=== PATIENT | male | born 1970 | race Caucasian/White ===

== ENCOUNTER 2021-09-13 10:31 | Emergency (ER) | payer OTHER ==
[~2021-09-13] VITALS: Ht 182.9 cm; Wt 93.4 kg
--- NOTE | 2021-09-13 10:34 | NUR ---
DR CAMERON AT BEDSIDE
[2021-09-13 10:45] VITALS: BP 165/107
--- NOTE | 2021-09-13 11:03 | NUR ---
TURN SUPERVISOR AT BEDSIDE
--- NOTE | 2021-09-13 11:53 | NUR ---
CALLED [facility] FOR PT
--- NOTE | 2021-09-13 11:53 | NUR ---
[facility]
[2021-09-13 11:56] LABS: BASOPHILS % (AUTO) 0.3 % (0.0-2.0); HEMATOCRIT 43 % (39-51); HEMOGLOBIN 15.1 g/dL (13.5-17.5); LYMPHOCYTES # (AUTO) 1.6 K/uL (0.8-4.8); LYMPHOCYTES % (AUTO) 14.7 % (20.0-44.0); MEAN CORPUSCULAR HGB CONC 35 g/dl (31.0-36.0); MEAN CORPUSCULAR VOLUME 88 fL (80-96); MONOCYTES # (AUTO) 0.7 K/uL (0.1-1.30); MONOCYTES % (AUTO) 6.5 % (2.0-12.0); NEUTROPHILS # (AUTO) 8.5 K/uL (1.8-8.9); NEUTROPHILS % (AUTO) 77.5 % (43.0-81.0); PLATELET COUNT (AUTO) 268 K/uL (150-450); RED BLOOD CELL COUNT(AUTO) 4.93 MIL/uL (4.5-6.0)
--- NOTE | 2021-09-13 12:06 | NUR ---
COVID AG SWAB DONE AND SENT TO LAB
--- NOTE | 2021-09-13 12:29 | NUR ---
[facility] CALL[facility] AND WAS NOTIFIED THAT THE PT GOT ACCEPTED TO [facility] UNDER THE CARE OF DR. MCNEIL. NUMBER FOR REPORT [phone] PT WILL BE PICKED UP AT [phone] BY [facility].
[2021-09-13] MEDS ORDERED: MORPHINE SULFATE INJ 4 MG/ML DISP.SYRIN ONE (12:30)
[2021-09-13] MEDS ORDERED: MORPHINE SULFATE INJ 2 MG/ML DISP.SYRIN IV ONE (12:30)
[2021-09-13 12:33] LABS: CALCIUM, SERUM 8.7 mg/dL (8.5-10.1); CREATININE 1.2 mg/dL (0.6-1.3); POTASSIUM 4.2 mmol/L (3.5-5.1)
--- NOTE | 2021-09-13 12:38 | NUR ---
REPORT GIVEN TO NURSE CORTEZ FROM [facility].
--- NOTE | 2021-09-13 13:33 | NUR ---
[facility] AND WAS NOTIFIED THAT TRANSPORT HAS A NEW ETA OF 1400
--- NOTE | 2021-09-13 14:29 | NUR ---
REPORT GIVEN TO [facility]
[2021-09-13] MEDS ORDERED: HYDROMORPHONE 1 MG/1 ML DISP.SYRIN ONE (14:41)
[2021-09-13] MEDS: HYDROMORPHONE 1 MG/1 ML DISP.SYRIN IV ONE ×2 (14:43→14:46)
--- NOTE | 2021-09-13 14:45 | NUR ---
PTIENT ALREADY LEFT WITH AMBULANCE. WAS NOT ABLE TO GIVE DILAUDID 0.5MG IVP.
== END 2021-09-13 14:50 | disposition short-term general hospital (02) ==
LOC: ER 10:37
DX: S82.52XA Displaced fracture of medial malleolus of left tibia, initial encounter for closed fracture (principal); S82.832A Other fracture of upper and lower end of left fibula, initial encounter for closed fracture; W11.XXXA Fall on and from ladder, initial encounter; Y92.89 Other specified places as the place of occurrence of the external cause; Z20.822 Contact with and (suspected) exposure to COVID-19
CPT/HCPCS: 29515; 36415; 71045; 73610; 80048; 85025; 85730; 87081; 87426; 93005; 96374; 99285; C9803; J2270; J1170